=== PATIENT | male | born 1965 | race Caucasian/White ===

== ENCOUNTER 2016-06-25 17:58 | Emergency (ER) | payer BC ==
[~2016-06-25] VITALS: Ht 180.3 cm; Wt 91.0 kg
[~2016-06-25 17:58] MED LIST: AMLO-110 PO; ASPI81TA28 PO; FEXO1TAB49 PO; MISCCAP80 PO; MULT-506 PO
[2016-06-25 18:20] VITALS: TEMP 37.2; Ht 180.3 cm; Wt 91.0 kg
[2016-06-25] MEDS ORDERED: SODIUM CHLORIDE 0.9% 1000ML 1,000 ML IV STA (19:53)
--- NOTE | 2016-06-25 19:58 | EMERGENCY ROOM VISIT NOTE ---
History Report prepared by Angelia: Jean Guerra Under the Supervision of: Dr. Aiden Dickey M.D. First contact with patient: 19:46 Chief Complaint: RECTAL BLEEDING Stated Complaint: BLEEDING NEAR RECTUM Nursing Triage Summary: Patient having "abcess like thing for a couple months around rectum, I was ignoring it but today it started bleeding and hacing nasty drainage". History of Present Illness The patient is a 51 year old male who presents to the Emergency Room with complaints of rectal bleeding that began today. The patient is not in any pain at the moment. He is just uncomfortable and embarrassed. After a bowel movement , he noticed a moderate amount of blood. The patient states that he thought that he has had an "abscess like thing" for a couple of months around his rectum. The patient was experiencing constipation a couple of days ago, but does not have any currently. He denies any other symptoms. Source of History: patient Onset: today Position: other (rectum) Symptom Intensity: moderate Quality: other (bleeding) Timing: resolved Note: He denies any other abnormal symptoms. Review of Systems See HPI for pertinent positives & negatives. A total of 10 systems reviewed and were otherwise negative. Past Medical & Surgical Medical Problems: (1) HTN (hypertension) Family History Cancer Hypertension Social History Smoking Status: Never Smoker Smokeless Tobacco Use: No Alcohol Use: occasionally Drug Use: none Marital Status: single Housing Status: lives alone Occupation Status: employed Current/Historical Medications Scheduled Amlodipine (Norvasc), 5 MG PO QAM Amoxicillin & Pot Clavulanate (Augmentin 875-125 mg), 1 TAB PO BID Aspirin (Aspirin Ec), 81 MG PO QAM Fexofenadine Hcl (Joselyn Allergy), 1 TAB PO QAM Hydrocortisone 2.5% (Rectal) (Anusol-Hc 2.5%), 1 APPLN TOP BID Losartan Potassium (Losartan Potassium), 50 MG PO QAM Multivitamin (Multivitamin), 1 TAB PO QAM Probiotic Product (Probiotic), 1 CAP PO QAM Allergies Coded Allergies: No Known Allergies (Unverified , 06/25/16) Physical Exam Vital Signs Date Time Temp Pulse Resp B/P Pulse Ox O2 Delivery O2 Flow Rate FiO2 06/25/16 21:27 77 16 142/86 97 Room Air 06/25/16 20:15 74 16 140/99 99 Room Air 06/25/16 18:20 37.2 90 17 131/92 98 Room Air Physical Exam GENERAL: Patient is a healthy-appearing well-nourished HEAD: Normocephalic atraumatic EYES: Ocular movements intact pupils equal and react to light OROPHARYNX mucous membranes are moist no exudates present no erythema or edema present NECK: Supple no nuchal rigidity CHEST: Good equal expansion LUNGS: Clear and equal to auscultation CARDIAC: Normal S1 and S2 ABDOMEN: Soft nontender no guarding BACK: No CVA tenderness RECTUM: Appears to have a small amount of serosanguineous fluid draining from the perirectal area that is nontender. No bleeding present at this point. EXTREMITIES: No pain upon palpation normal muscle strength in all groups no clubbing cyanosis or edema NEURO: Patient is following commands is answering questions appropriately. Alert and oriented x3 Cranial Nerves 2-12 grossly intact Medical Decision & Procedures ER Provider Diagnostic Interpretation: Radiology results as stated below per my review and radiologist interpretation: CT pelvis PELVIS W/IV CONT ONLY (CT) CLINICAL HISTORY: Abscess rectal bleeding TECHNIQUE: Transaxial acquisition. Multi axial reformatted images. COMPARISON STUDY: None FINDINGS: Bowel pattern is nonobstructive. There are findings of chronic sigmoid diverticulosis. Proximal aspect of the sigmoid suggests a trace amount of pericolonic infiltrative change. A component of mild acute diverticular change is considered. There is no evidence for abscess collection or obstructive change. Bladder is midline. Perirectal fascial planes are unremarkable. There is no evidence for abscess or collection. IMPRESSION: 1. No evidence for perirectal abscess or collection. 2. Chronic sigmoid diverticulosis with very mild acute superimposed proximal sigmoid diverticulitis. 3. No evidence for abscess collection or obstructive change. Electronically signed by: Jeremy Carlisle M.D. 06/25/2016 8:57 PM Dictated Date/Time: 06/25/2016 8:54 PM Laboratory Results 06/25/16 20:08 Red Blood Count 4.04, Mean Corpuscular Volume 88.9, Mean Corpuscular Hemoglobin 32.4, Mean Corpuscular Hemoglobin Concent 36.5, Mean Platelet Volume 9.2, Neutrophils (%) (Auto) 65.6, Lymphocytes (%) (Auto) 25.1, Monocytes (%) (Auto) 6.8, Eosinophils (%) (Auto) 2.0, Basophils (%) (Auto) 0.4, Neutrophils # (Auto) 4.66, Lymphocytes # (Auto) 1.78, Monocytes # (Auto) 0.48, Eosinophils # (Auto) 0.14, Basophils # (Auto) 0.03 06/25/16 20:08 Test 06/25/16 20:08 06/25/16 20:09 06/25/16 20:10 White Blood Count 7.10 K/uL (4.8-10.8) Red Blood Count 4.04 M/uL (4.7-6.1) Hemoglobin 13.1 g/dL (14.0-18.0) Hematocrit 35.9 % (42-52) Mean Corpuscular Volume 88.9 fL (80-100) Mean Corpuscular Hemoglobin 32.4 pg (25-34) Mean Corpuscular Hemoglobin Concent 36.5 g/dl (32-36) Platelet Count 276 K/uL (130-400) Mean Platelet Volume 9.2 fL (7.4-10.4) Neutrophils (%) (Auto) 65.6 % Lymphocytes (%) (Auto) 25.1 % Monocytes (%) (Auto) 6.8 % Eosinophils (%) (Auto) 2.0 % Basophils (%) (Auto) 0.4 % Neutrophils # (Auto) 4.66 K/uL (1.4-6.5) Lymphocytes # (Auto) 1.78 K/uL (1.2-3.4) Monocytes # (Auto) 0.48 K/uL (0.11-0.59) Eosinophils # (Auto) 0.14 K/uL (0-0.5) Basophils # (Auto) 0.03 K/uL (0-0.2) RDW Standard Deviation 39.8 fL (36.4-46.3) RDW Coefficient of Variation 12.3 % (11.5-14.5) Immature Granulocyte % (Auto) 0.1 % Immature Granulocyte # (Auto) 0.01 K/uL (0.00-0.02) Est Creatinine Clear Calc Drug Dose 84.0 ml/min Estimated GFR () 80.7 Estimated GFR (Non- 69.6 BUN/Creatinine Ratio 16.4 (10-20) Calcium Level 9.2 mg/dl (8.5-10.1) Total Bilirubin 0.4 mg/dl (0.2-1) Direct Bilirubin mg/dl (0-0.2) Aspartate Amino Transf (AST/SGOT) 25 U/L (15-37) Alanine Aminotransferase (ALT/SGPT) 35 U/L (12-78) Alkaline Phosphatase 63 U/L (45-117) Total Protein 7.7 gm/dl (6.4-8.2) Albumin 4.2 gm/dl (3.4-5.0) Lipase 194 U/L (73-393) Chemistry Specimen Hemolysis Bedside Hemoglobin 13.3 g/dl (14.0-18.0) Bedside Hematocrit 39 % (42-52) Bedside Sodium 139 mEq/L (135-144) Bedside Potassium 3.8 mEq/L (3.3-5.0) Bedside Chloride 102 mEq/L (101-112) Bedside Total CO2 25 mEq/l (24-31) Anion Gap 17.0 mmol/L (16-25) Bedside Blood Urea Nitrogen 21 mg/dl (7-18) Bedside Creatinine 1.0 mg/dl (0.6-1.3) Bedside Glucose (other) 102 mg/dl (70-99) Bedside Ionized Calcium (Braden) 1.21 mmol/l (1.12-1.32) Urine Color YELLOW Urine Appearance CLEAR (CLEAR) Urine pH 6.5 (4.5-7.5) Urine Specific [place] 1.018 (1.000-1.030) Urine Protein NEG (NEG) Urine Glucose (UA) NEG (NEG) Urine Ketones NEG (NEG) Urine Occult Blood NEG (NEG) Urine Nitrite NEG (NEG) Urine Bilirubin NEG (NEG) Urine Urobilinogen NEG (NEG) Urine Leukocyte Esterase NEG (NEG) Labs reviewed by ED physician. Medications Administered Medications (Trade) Dose Ordered Sig/Paul Route Start Time Stop Time Status Last Admin Dose Admin Sodium Chloride (Nss 1000ml) 1,000 ml @ 999 mls/hr Q1H1M STAT IV 06/25/16 19:53 06/25/16 20:53 DC 06/25/16 20:17 999 MLS/HR Amoxicillin/ Clavulanate Potassium (Augmentin Tab) 875 mg ONE ONCE PO 06/25/16 21:15 06/25/16 21:16 DC 06/25/16 21:22 875 MG ED Course 1946: Past medical records reviewed. The patient was evaluated in room B12. A complete history and physical examination was performed. 1952: Sodium Chloride 1000 ml @ 999 mls/hr IV 2114: Augmentin Tab 875 mg PO 2129: Upon reexamination the patient is resting. I discussed results and treatment plan with the patient. He verbalizes agreement and understanding. The patient is ready for discharge. Medical Decision Differential diagnosis: Etiologies such as appendicitis, diverticulitis, PUD, biliary pathology, UTI, pancreatitis, obstruction, mesenteric ischemia, aortic pathology, infections, inflammatory bowel disease, renal colic, as well as others were entertained. This is a 51-year-old male who presents to see department complaining of rectal bleeding. The patient does have several hemorrhoids in the area and I do believe he ruptured a hemorrhoid. The patient is concerned about an abscess so he was sent for CT of the pelvis. This did not show any evidence of perirectal abscess. As such the area is draining. There is no erich her outright blood. I will place the patient on Augmentin for preventative purposes. I did encourage the patient follow-up with gastroenterology and encouraged to use of Anusol. Patient was in agreement with the treatment plan. Impression Primary Impression: Rectal bleed Scribe Attestation The scribe's documentation has been prepared under my direction and personally reviewed by me in its entirety. I confirm that the note above accurately reflects all work, treatment, procedures, and medical decision making performed by me. Departure Information Dispostion Home / Self-Care Prescriptions Amoxicillin & Pot Clavulanate (Augmentin 875-125 mg) 1 Tab Tab 1 TAB PO BID for 10 Days, #20 TAB Prov: Aiden Dickey MD 06/25/16 Hydrocortisone 2.5% (Rectal) (ANUSOL-HC 2.5%) 2.5 % Cre 1 APPLN TOP BID for 7 Days, #30 GM Prov: Aiden Dickey MD 06/25/16 Referrals Enriqueta Boyd C.R.N.P. (PCP) Forms HOME CARE DOCUMENTATION FORM, IMPORTANT VISIT INFORMATION, WORK / SCHOOL INSTRUCTIONS Patient Instructions Bleeding Gastrointestinal, Hydrocortisone Rectal cream, My [employer] Additional Instructions Follow up with gastroenterology You have been examined and treated today on an emergency basis only. This is not a substitute for, or an effort to provide, complete comprehensive medical care. It is impossible to recognize and treat all injuries or illnesses in a single emergency department visit. It is therefore important that you follow up closely with your PCP. Call as soon as possible for an appointment. Thank you for your time and consideration. I look forward to speaking with you again soon. Please don't hesitate to call us if you have any questions.
[2016-06-25 20:14] LABS: BASO % 0.4 %; BASO ABS # 0.03 K/uL (0-0.2); COMPLETE YES; HEMATOCRIT 35.9 % (42-52); IG% 0.1 %; LYMPH % 25.1 %; LYMPH ABS # 1.78 K/uL (1.2-3.4); MEAN CELL VOLUME 88.9 fL (80-100); MEAN CORPUSCULAR HEMOGLOBIN 32.4 pg (25-34); MEAN CORPUSCULAR HGB CONC 36.5 g/dl (32-36); MEAN PLATELET VOLUME 9.2 fL (7.4-10.4); MONO % 6.8 %; NEUT % 65.6 %; PLATELET COUNT 276 K/uL (130-400); RED BLOOD COUNT 4.04 M/uL (4.7-6.1)
[2016-06-25] MEDS ORDERED: OPTIRAY 320 IV PRN (20:15)
[2016-06-25] MEDS ORDERED: CZR50 PO (20:21)
[2016-06-25 20:29] LABS: ISTAT HEMOGLOBIN 13.3 g/dl (14.0-18.0); ISTAT IONIZED CALCIUM 1.21 mmol/l (1.12-1.32)
[2016-06-25 20:39] LABS: URINE APPEARANCE CLEAR (CLEAR); URINE BILIRUBIN NEG (NEG); URINE COLOR YELLOW; URINE NITRITE NEG (NEG); URINE PH 6.5 (4.5-7.5); URINE SPECIFIC GRAVITY 1.018 (1.000-1.030); UROBILINOGEN NEG (NEG)
[2016-06-25 20:49] LABS: MANUAL MICROSCOPIC REQUIRED? NO; REVIEW REQ? NO
--- NOTE | 2016-06-25 20:58 | DIAGNOSTIC IMAGING REPORT ---
CT pelvis PELVIS W/IV CONT ONLY (CT) CLINICAL HISTORY: Abscess rectal bleeding TECHNIQUE: Transaxial acquisition. Multi axial reformatted images. COMPARISON STUDY: None FINDINGS: Bowel pattern is nonobstructive. There are findings of chronic sigmoid diverticulosis. Proximal aspect of the sigmoid suggests a trace amount of pericolonic infiltrative change. A component of mild acute diverticular change is considered. There is no evidence for abscess collection or obstructive change. Bladder is midline. Perirectal fascial planes are unremarkable. There is no evidence for abscess or collection. IMPRESSION: 1. No evidence for perirectal abscess or collection. 2. Chronic sigmoid diverticulosis with very mild acute superimposed proximal sigmoid diverticulitis. 3. No evidence for abscess collection or obstructive change. Electronically signed by: Jeremy Carlisle M.D. 06/25/2016 8:57 PM Dictated Date/Time: 06/25/2016 8:54 PM
[2016-06-25 21:06] LABS: ALKALINE PHOSPHATASE 63 U/L (45-117); ALT/SGPT 35 U/L (12-78); AST/SGOT 25 U/L (15-37); BLOOD UREA NITROGEN 20 mg/dl (7-18); BUN/CREATININE RATIO 16.4 (10-20); CALCIUM 9.2 mg/dl (8.5-10.1); CARBON DIOXIDE 24 mmol/L (21-32); CHLORIDE 103 mmol/L (98-107); GLUCOSE 96 mg/dl (70-99); POTASSIUM 3.9 mmol/L (3.5-5.1); SODIUM 140 mmol/L (136-145)
[2016-06-25] MEDS ORDERED: AMOXICILLIN/CLAVULANATE TAB 875 MG TAB PO ONE (21:15)
[2016-06-25] MEDS ORDERED: HYDR2.5C37 TOP (21:17)
[2016-06-25] MEDS ORDERED: AMOX875T PO (21:17)
[2016-06-25 21:27] VITALS: BP 142/86; PULSE 77; O2SAT 97
== END 2016-06-25 21:30 | disposition home or self-care (01) ==
LOC: C.EDB 18:00
DX: K62.5 Hemorrhage of anus and rectum (principal); I10 Essential (primary) hypertension; Z80.9 Family history of malignant neoplasm, unspecified

== ENCOUNTER → 2016-06-26 | Outpatient (CLI) | payer BC ==
[~2016-06-26] MED LIST changes: +AMOX875T PO; +CZR50 PO; +HYDR2.5C37 TOP
[2016-06-26 13:05] LABS: BLOOD UREA NITROGEN 12 mg/dl (7-18); BUN/CREATININE RATIO 12.1 (10-20); CALCIUM 9.1 mg/dl (8.5-10.1); CARBON DIOXIDE 30 mmol/L (21-32); CHLORIDE 106 mmol/L (98-107); CREATININE 0.99 mg/dl (0.60-1.40); GLUCOSE 100 mg/dl (70-99); POTASSIUM 4.3 mmol/L (3.5-5.1); SODIUM 142 mmol/L (136-145)
== END | disposition home or self-care (01) ==
LOC: C.LABBFT 08:50
PROVIDERS: ATTEND Nurse Practitioner
DX: I10 Essential (primary) hypertension (principal)

== ENCOUNTER → 2017-01-09 | Outpatient (CLI) | payer BC ==
[~2017-01-09] MED LIST changes: -AMOX875T PO; -HYDR2.5C37 TOP
[2017-01-09 12:37] LABS: HEMATOCRIT 40.1 % (42-52); MEAN CELL VOLUME 92.8 fL (80-100); MEAN CORPUSCULAR HEMOGLOBIN 31.9 pg (25-34); MEAN CORPUSCULAR HGB CONC 34.4 g/dl (32-36); MEAN PLATELET VOLUME 10.7 fL (7.4-10.4); PLATELET COUNT 280 K/uL (130-400); RED BLOOD COUNT 4.32 M/uL (4.7-6.1); WHITE BLOOD COUNT 5.48 K/uL (4.8-10.8)
[2017-01-09 13:00] LABS: BLOOD UREA NITROGEN 16 mg/dl (7-18); BUN/CREATININE RATIO 14.8 (10-20); CALCIUM 9.6 mg/dl (8.5-10.1); CARBON DIOXIDE 28 mmol/L (21-32); CHLORIDE 104 mmol/L (98-107); GLUCOSE 101 mg/dl (70-99); POTASSIUM 4.3 mmol/L (3.5-5.1); SODIUM 138 mmol/L (136-145)
[2017-01-09 13:07] LABS: CHOLESTEROL 232 mg/dl (0-200); CHOLESTEROL/HDL RATIO 3.1; HDL CHOLESTEROL 76 mg/dl; LDL CHOLESTEROL CALCULATED 105 mg/dl; RHEUMATOID FACTOR < 10.0 U/mL (0-15); TRIGLYCERIDES 254 mg/dl (0-150); VERY LOW DENSITY LIPOPROT CALC 51 mg/dl
== END | disposition home or self-care (01) ==
LOC: C.LABBFT 08:25
PROVIDERS: ATTEND Nurse Practitioner
DX: R73.01 Impaired fasting glucose (principal); Z12.5 Encounter for screening for malignant neoplasm of prostate; E78.5 Hyperlipidemia, unspecified